=== PATIENT | female | born 1945 | race Caucasian/White ===

== ENCOUNTER 2019-03-10 11:04 | Outpatient (CLI) | payer OTHER ==
[~2019-03-10 11:04] MED LIST: COZAAR50 MG
== END 2019-03-10 11:10 | disposition home or self-care (01) ==
LOC: LAB 11:04
DX: E03.8 Other specified hypothyroidism (principal); D64.89 Other specified anemias; D68.8 Other specified coagulation defects; E78.2 Mixed hyperlipidemia; Z12.11 Encounter for screening for malignant neoplasm of colon; E55.9 Vitamin D deficiency, unspecified; N39.0 Urinary tract infection, site not specified; J45.998 Other asthma

== ENCOUNTER 2019-03-25 13:08 | Outpatient (CLI) | payer OTHER | END 2019-03-25 13:26 | disposition home or self-care (01) | LOC: SONOGRAMA 13:08 | DX: G91.1 Obstructive hydrocephalus (principal) ==

== ENCOUNTER 2019-03-25 14:19 | Outpatient (CLI) | payer OTHER | END 2019-03-25 14:23 | disposition home or self-care (01) | LOC: LAB 14:19 | DX: N39.0 Urinary tract infection, site not specified (principal) ==

== ENCOUNTER 2019-04-01 11:42 | Outpatient (CLI) | payer OTHER | END 2019-04-01 12:40 | disposition home or self-care (01) | LOC: MAMO-SONO 11:42 | DX: Z12.31 Encounter for screening mammogram for malignant neoplasm of breast (principal); Z12.39 Encounter for other screening for malignant neoplasm of breast; Z87.898 Personal history of other specified conditions ==

== ENCOUNTER → 2019-06-22 | Outpatient (CLI) | payer OTHER | END | disposition home or self-care (01) | LOC: SONOGRAMA 12:35 | DX: R10.84 Generalized abdominal pain (principal) ==

== ENCOUNTER 2019-07-06 13:05 | Outpatient (CLI) | payer OTHER | END 2019-07-06 13:08 | disposition home or self-care (01) | LOC: RAD 13:05 | DX: M20.11 Hallux valgus (acquired), right foot (principal); M20.12 Hallux valgus (acquired), left foot; G57.62 Lesion of plantar nerve, left lower limb ==

== ENCOUNTER 2019-07-22 08:21 | Outpatient (CLI) | payer OTHER | END 2019-07-22 10:33 | disposition home or self-care (01) | LOC: NUCLEAR 08:21 | DX: M89.8X0 Other specified disorders of bone, multiple sites (principal) | CPT/HCPCS: 78315; A9503 ==

== ENCOUNTER 2019-09-28 11:56 | Emergency (ER) | payer OTHER ==
[~2019-09-28] VITALS: Ht 154.9 cm; Wt 64.4 kg
[2019-09-28] MEDS ORDERED: LOSARTAN POTAS100 MG (12:41)
[2019-09-28] MEDS ORDERED: PEPCID AC20 MG (12:42)
[2019-09-28] MEDS ORDERED: PLAVIX75 MG (12:42)
== END 2019-09-28 16:33 | disposition home or self-care (01) ==
LOC: ER 11:56
DX: I87.2 Venous insufficiency (chronic) (peripheral) (principal); M79.604 Pain in right leg

== ENCOUNTER → 2020-07-24 09:08 | Outpatient (CLI) | payer OTHER ==
[~2020-07-24 09:08] MED LIST changes: +LOSARTAN POTAS100 MG; +PEPCID AC20 MG; +PLAVIX75 MG
== END | disposition home or self-care (01) ==
LOC: LAB 09:08
PROVIDERS: ATTEND Internal Medicine Cardiovascular Disease
DX: E03.8 Other specified hypothyroidism (principal); E78.2 Mixed hyperlipidemia; I11.9 Hypertensive heart disease without heart failure

== ENCOUNTER 2020-12-19 08:04 | Outpatient (CLI) | payer OTHER | END 2020-12-19 08:14 | disposition home or self-care (01) | LOC: TOM 08:04 | PROVIDERS: ATTEND Specialist | DX: R10.32 Left lower quadrant pain (principal) ==

== ENCOUNTER 2021-01-18 11:17 | Outpatient (CLI) | payer OTHER | END 2021-01-18 11:21 | disposition home or self-care (01) | LOC: LAB 11:17 | PROVIDERS: ATTEND Internal Medicine Gastroenterology | DX: R10.13 Epigastric pain (principal) ==

== ENCOUNTER → 2021-01-29 11:27 | Outpatient (CLI) | payer OTHER | END | disposition home or self-care (01) | LOC: LAB 11:27 | PROVIDERS: ATTEND Specialist | DX: E78.2 Mixed hyperlipidemia (principal); E11.21 Type 2 diabetes mellitus with diabetic nephropathy ==

== ENCOUNTER 2021-01-29 12:09 | Outpatient (CLI) | payer OTHER | END 2021-01-29 12:27 | disposition home or self-care (01) | LOC: TOM 12:09 | PROVIDERS: ATTEND Specialist | DX: M16.0 Bilateral primary osteoarthritis of hip (principal); M51.26 Other intervertebral disc displacement, lumbar region ==

== ENCOUNTER 2021-03-26 08:31 | Outpatient (CLI) | payer OTHER | END 2021-03-26 08:48 | disposition home or self-care (01) | LOC: MAMO-SONO 08:31 | PROVIDERS: ATTEND Specialist | DX: R92.1 Mammographic calcification found on diagnostic imaging of breast (principal); Z12.31 Encounter for screening mammogram for malignant neoplasm of breast; N64.59 Other signs and symptoms in breast ==

== ENCOUNTER → 2021-03-26 13:05 | Outpatient (CLI) | payer OTHER | END | disposition home or self-care (01) | LOC: NUCLEAR 13:00 | PROVIDERS: ATTEND Specialist | DX: M85.88 Other specified disorders of bone density and structure, other site (principal) ==

== ENCOUNTER → 2021-06-11 10:31 | Outpatient (CLI) | payer OTHER | END | disposition home or self-care (01) | LOC: LAB 10:31 | PROVIDERS: ATTEND Specialist | DX: E03.8 Other specified hypothyroidism (principal); E11.65 Type 2 diabetes mellitus with hyperglycemia; E11.21 Type 2 diabetes mellitus with diabetic nephropathy; E78.2 Mixed hyperlipidemia ==

== ENCOUNTER 2021-09-21 09:16 | Outpatient (CLI) | payer OTHER | END 2021-09-21 09:17 | disposition home or self-care (01) | LOC: LAB 09:16 | PROVIDERS: ATTEND Specialist | DX: E03.9 Hypothyroidism, unspecified (principal); E11.21 Type 2 diabetes mellitus with diabetic nephropathy; N39.9 Disorder of urinary system, unspecified; E78.2 Mixed hyperlipidemia; E11.65 Type 2 diabetes mellitus with hyperglycemia; Z12.11 Encounter for screening for malignant neoplasm of colon; D64.9 Anemia, unspecified; J45.998 Other asthma; N39.0 Urinary tract infection, site not specified ==

== ENCOUNTER 2021-12-28 10:49 | Outpatient (CLI) | payer OTHER | END 2021-12-28 11:02 | disposition home or self-care (01) | LOC: RAD 10:49 | PROVIDERS: ATTEND Orthopaedic Surgery | DX: M17.0 Bilateral primary osteoarthritis of knee (principal) ==

== ENCOUNTER 2021-12-29 08:49 | Outpatient (CLI) | payer OTHER | END 2021-12-29 08:56 | disposition home or self-care (01) | LOC: LAB 08:49 | PROVIDERS: ATTEND Specialist | DX: E03.9 Hypothyroidism, unspecified (principal); E78.2 Mixed hyperlipidemia ==

== ENCOUNTER 2022-04-19 11:28 | Emergency (ER) | payer OTHER ==
[~2022-04-19] VITALS: Ht 157.5 cm; Wt 68.0 kg
[2022-04-19] MEDS ORDERED: CRESTOR5 MG PO (11:42)
[2022-04-19] MEDS ORDERED: ELIQUIS2.5 MG PO (15:40)
== END 2022-04-19 15:53 | disposition home or self-care (01) ==
LOC: ER 11:28
DX: G45.9 Transient cerebral ischemic attack, unspecified (principal); E03.9 Hypothyroidism, unspecified; E78.00 Pure hypercholesterolemia, unspecified; I10 Essential (primary) hypertension; Z86.73 Personal history of transient ischemic attack (TIA), and cerebral infarction without residual deficits

== ENCOUNTER → 2022-04-23 08:47 | Outpatient (CLI) | payer OTHER ==
[~2022-04-23 08:47] MED LIST changes: +CRESTOR5 MG PO; +ELIQUIS2.5 MG PO
== END | disposition home or self-care (01) ==
LOC: LAB 08:47
PROVIDERS: ATTEND Specialist
DX: E03.9 Hypothyroidism, unspecified (principal); E78.2 Mixed hyperlipidemia; E11.65 Type 2 diabetes mellitus with hyperglycemia; D68.8 Other specified coagulation defects; M32.10 Systemic lupus erythematosus, organ or system involvement unspecified; K57.81 Diverticulitis of intestine, part unspecified, with perforation and abscess with bleeding; D68.59 Other primary thrombophilia; E72.12 Methylenetetrahydrofolate reductase deficiency; Z86.2 Personal history of diseases of the blood and blood-forming organs and certain disorders involving the immune mechanism

== ENCOUNTER 2022-04-24 08:09 | Outpatient (CLI) | payer OTHER | END 2022-04-24 08:12 | disposition home or self-care (01) | LOC: NUCLEAR 08:09 | PROVIDERS: ATTEND Internal Medicine Cardiovascular Disease | DX: I25.9 Chronic ischemic heart disease, unspecified (principal); E03.9 Hypothyroidism, unspecified ==

== ENCOUNTER 2022-04-26 07:33 | Outpatient (CLI) | payer OTHER | END 2022-04-26 07:36 | disposition home or self-care (01) | LOC: NUCLEAR 07:33 | PROVIDERS: ATTEND Internal Medicine Cardiovascular Disease | DX: G45.9 Transient cerebral ischemic attack, unspecified (principal); I25.10 Atherosclerotic heart disease of native coronary artery without angina pectoris | CPT/HCPCS: 78452; 93017; A9500; J0153 ==

== ENCOUNTER 2022-05-10 09:03 | Outpatient (CLI) | payer OTHER | END 2022-05-10 09:10 | disposition home or self-care (01) | LOC: LAB 09:03 | PROVIDERS: ATTEND Psychiatry & Neurology Clinical Neurophysiology | DX: R51.9 Headache, unspecified (principal) ==

== ENCOUNTER 2022-05-13 08:41 | Outpatient (CLI) | payer OTHER | END 2022-05-13 08:45 | disposition home or self-care (01) | LOC: MRI 08:41 | PROVIDERS: ATTEND Psychiatry & Neurology Clinical Neurophysiology | DX: H49.20 Sixth [abducent] nerve palsy, unspecified eye (principal); R51.9 Headache, unspecified | CPT/HCPCS: 70552 ==

== ENCOUNTER 2022-12-02 14:01 | Outpatient (CLI) | payer OTHER | END 2022-12-02 14:25 | disposition home or self-care (01) | LOC: RAD 14:01 | DX: M54.50 Low back pain, unspecified (principal); M17.0 Bilateral primary osteoarthritis of knee ==

== ENCOUNTER → 2022-12-16 09:38 | Outpatient (CLI) | payer OTHER | END | disposition home or self-care (01) | LOC: NUCLEAR 09:38 | PROVIDERS: ATTEND Internal Medicine Cardiovascular Disease | DX: I87.2 Venous insufficiency (chronic) (peripheral) (principal) ==

== ENCOUNTER 2023-10-13 13:17 | Outpatient (CLI) | payer OTHER | END 2023-10-13 13:18 | disposition home or self-care (01) | LOC: NUCLEAR 13:17 | PROVIDERS: ATTEND Specialist | DX: M81.0 Age-related osteoporosis without current pathological fracture (principal); Z13.820 Encounter for screening for osteoporosis ==

== ENCOUNTER 2024-06-03 09:21 | Outpatient (CLI) | payer OTHER | END 2024-06-03 09:29 | disposition home or self-care (01) | LOC: MAMO-SONO 09:21 | PROVIDERS: ATTEND Specialist | DX: N63.0 Unspecified lump in unspecified breast (principal); Z12.31 Encounter for screening mammogram for malignant neoplasm of breast ==

== ENCOUNTER 2024-11-22 10:15 | Outpatient (CLI) | payer OTHER | END 2024-11-22 10:21 | disposition home or self-care (01) | LOC: MRI 10:15 | PROVIDERS: ATTEND Specialist | DX: M80.80XD Other osteoporosis with current pathological fracture, unspecified site, subsequent encounter for fracture with routine healing (principal); S34.109A Unspecified injury to unspecified level of lumbar spinal cord, initial encounter; S32.000A Wedge compression fracture of unspecified lumbar vertebra, initial encounter for closed fracture | CPT/HCPCS: 72148 ==

== ENCOUNTER 2025-04-05 12:18 | Outpatient (CLI) | payer OTHER | END 2025-04-05 12:22 | disposition home or self-care (01) | LOC: RAD 12:18 | PROVIDERS: ATTEND Physical Medicine & Rehabilitation | DX: M17.11 Unilateral primary osteoarthritis, right knee (principal); M17.12 Unilateral primary osteoarthritis, left knee ==

== ENCOUNTER → 2025-06-24 08:48 | Outpatient (CLI) | payer OTHER | END | disposition home or self-care (01) | LOC: TOM 08:48 | PROVIDERS: ATTEND Specialist | DX: K57.31 Diverticulosis of large intestine without perforation or abscess with bleeding (principal); Z87.19 Personal history of other diseases of the digestive system | CPT/HCPCS: 74178; Q9965 ==